=== PATIENT | female | born 1990 | race Caucasian/White ===

== ENCOUNTER → 2018-03-28 | Day surgery (SDC) | payer OTHER ==
[~2018-03-28] VITALS: Ht 172.7 cm; Wt 65.8 kg
[~2018-03-28] MED LIST: NUVARING VAGIN1 EACH VG; PRILOSEC 20MG C20 MG PO; ZOFRAN4 M1 SL
--- NOTE | 2018-03-28 11:00 | Operative Report ---
Operative/Inv Procedure Report Surgery Date: 03/28/18 Name of Procedure: Left knee arthroscopy with partial medial meniscectomy Pre-Operative Diagnosis: Left knee medial meniscus tear (horizontal tear of body with flipped fragments) Post-Operative Diagnosis: Left knee medial meniscus tear (horizontal tear of body with flipped fragments) Estimated Blood Loss: scant Surgeon/Roto Mixer Operator: Ghada RUDD,Carlos Alberto Guillen PA-C Anesthesia: laryngeal mask airway IV Fluids: Per anesthesia record Implants: Arthrex Meniscal Cinch - deployed in knee then removed. Drains: None Specimens: None Tourniquet: 70min at 300mmHg Complications: None Condition: Stable Operative Indication: Beth Espinosa is a 27-year-old female who presented to the orthopedic clinic with left medial knee pain. She had aching in the knee for several weeks, however felt a pop and sharp pain in the inside of the left knee while using the stationary bicycle at the gym. The pain was accompanied by swelling, catching, and limping. She was evaluated and had x-rays of the knee and an MRI, which showed a horizontal tear of the medial meniscus as well as flipped fragments in the periphery and off the posterior root. After discussing the risks, benefits, and alternatives to surgical intervention, she has opted to proceed with left knee arthroscopy with possible meniscal repair versus meniscectomy. Given her age and activity level, it is ideal to repair the meniscus, however given the nature of the tear this may not be possible. Operative/Procedure Note Note: The patient arrived at [facility] on 03/28/2018. She was met in the preoperative area, where her operative extremity was marked and her past medical history was reviewed. She was taken to the operating room and placed supine on the operating room table. A timeout procedure was performed in which the patient, operative extremity, and planned procedure were verified. The patient was induced under general anesthesia and an LMA was placed. IV cefazolin was given for antibiotic prophylaxis. Nonsterile tourniquet was applied to the left upper thigh, and the left lower extremity was prepped and draped in the usual sterile fashion. The left lower extremity was elevated and the tourniquet raised to 300 mmHg. The knee was brought into flexion and a standard inferolateral portal was created with a #11 blade scalpel. The camera and was introduced into the knee joint and the knee was taken into extension. The patellofemoral joint was noted to be in good condition without cartilage wear. The lateral gutter was without loose bodies. In the medial gutter, a flipped fragment of the known meniscal tear was evident. The knee was taken into flexion and a spinal needle was used to localize the inferomedial portal. A #11 blade scalpel was then used to create the portal, which allowed for introduction of a probe into the joint. With the knee in extension with a valgus loaded, the medial compartment was evaluated. The tear of the medial meniscus was evident with a fragment off the lateral body extending into the meniscal femoral recess, as well as a large fragment flipped into the notch off of the posterior root. The ACL was noted in the notch and in good condition. The knee was taken into a figure-of-4 position , and the lateral compartment evaluated. There were no meniscal tears or damage to the cartilage of the lateral femoral condyle or tibial plateau. The knee was taken back into extension with a valgus lead to further evaluate the medial compartment. The cartilage of the lateral femoral condyle and tibial plateau were in good condition, however the meniscal tear involved both the posterior body of the meniscus and extended to the horn. The fragments of meniscus that were not amenable to repair were debrided using a combination of biters and a 3.5 mm shaver. Prevacid reintroduced in the joint and a large fragment was noted off the posterior aspect of the meniscus. This was easily reduced back to the periphery. We attempted to repair this fragment of the meniscus and the posterior body. The meniscal rim was initially rasped to stimulate healing. There was a horizontal tear noted with superior inferior flaps, however this was not amenable to circumferential stitching given the location. The meniscal fragment was reduced to the periphery, and an Arthrex cinch was used through a passport cannula to place horizontal sutures securing the fragment to the capsule. The initial suture anchor deployed, however the second anchor tore through the tissue. Given the friable nature of the tissue, it was not amenable to repair. The fragment was therefore removed using a combination biters in the shaver. The patient did have approximately 10-15mm of residual tissue along the meniscal rim, and the remaining tissue was reevaluated to ensure stability. At the conclusion of the procedure all instruments were removed from the joint and any excess fluid was evacuated. The portal sites were closed using #3-0 nylon suture. The wounds were dressed with sterile Xeroform, 4 x 4 gauze, and an ABD pad, and secured with sterile webril. The left knee wrapped with an Fredi bandage. Patient was then extubated and taken from the operating room to the postanesthesia care unit in stable condition.
== END ==
LOC: STS 00:41
DX: S83.242A Other tear of medial meniscus, current injury, left knee, initial encounter (principal); X58.XXXA Exposure to other specified factors, initial encounter
CPT/HCPCS: 81025; J0131; J0690; J2250